=== PATIENT | male | born 1990 | race African-American/Black ===

== ENCOUNTER 2018-01-06 10:02 | Emergency (ER) | payer MEDICAID ==
[~2018-01-06] VITALS: Ht 162.6 cm; Wt 62.0 kg
[2018-01-06 10:08] VITALS: BP 127/74
== END 2018-01-06 11:05 | disposition home or self-care (01) ==
LOC: ED 10:59
DX: M94.0 Chondrocostal junction syndrome [Tietze] (principal)
CPT/HCPCS: 93005; 99283